=== PATIENT | male | born 1980 | race Two or more races ===

== ENCOUNTER 2018-03-07 20:21 | Emergency (ER) | payer BC, MEDICAID ==
[~2018-03-07] VITALS: Ht 170.2 cm; Wt 72.6 kg
[2018-03-07] MEDS ORDERED: ACETAMINOPHEN 325 MG TAB PO ONE ×2 (21:01→21:15)
[2018-03-07 21:06] VITALS: BP 150/93
== END 2018-03-08 02:01 | disposition home or self-care (01) ==
LOC: ER 20:21
DX: S92.901A Unspecified fracture of right foot, initial encounter for closed fracture (principal); X58.XXXA Exposure to other specified factors, initial encounter; Y93.89 Activity, other specified; Y92.89 Other specified places as the place of occurrence of the external cause; Y99.8 Other external cause status
CPT/HCPCS: 73610; 73630

== ENCOUNTER 2018-03-23 22:51 | Emergency (ER) | payer BC, MEDICAID ==
[~2018-03-23] VITALS: Ht 170.2 cm; Wt 72.6 kg
[2018-03-23 23:20] VITALS: BP 132/88
== END 2018-03-24 06:27 | disposition left against medical advice (07) ==
LOC: ER 22:54
DX: M79.671 Pain in right foot (principal); Z53.21 Procedure and treatment not carried out due to patient leaving prior to being seen by health care provider